=== PATIENT | male | born 1955 | race Caucasian/White ===

== ENCOUNTER 2019-09-05 08:00 | Inpatient (IN) | payer OTHER, MEDICARE ==
--- NOTE | 2019-09-05 08:09 | HP ---
Satellite [facility] - Chief Complaint Chief Complaint: left hip pain - Past Medical History Allergies/Adverse Reactions: Allergies Allergy/AdvReac Type Severity Reaction Status Date / Time No Known Allergies Allergy Verified 08/21/19 11:44 - Current Medications Current Medications: Home Medications Medication Instructions Recorded [place]-3 Fatty Acids [[place]-3] 1 each PO DAILY 08/21/19 Satellite Physical Exam - Physical Examination General Appearance: Well Nourished, Well Developed, Alert & Oriented x3 ENT: Clear Lung: Normal air movement Heart: Regular rate & rhythm Extremities: Other (left hip- + ttp, dec rom, nvi, xrays show grade 4 hip djd) Neurological: Intact, Alert, Oriented Satellite Impression/Plan - Impression/Plan Impression: left hip djd Operative Procedure: left castillo thr Date to be Performed: 09/05/19
[2019-09-05] MEDS ORDERED: CELECOXIB 200 MG CAPSULE PO ONE ×2 (09:03→09:30)
[2019-09-05] MEDS ORDERED: CEFAZOLIN 2 GM in DEXTROSE 5%-WATER - 50 ML IVPB ONE (09:03)
[2019-09-05] MEDS ORDERED: TRANEXAMIC ACID 1000 MG/10 ML VIAL IVPUSH ONE (09:03)
[2019-09-05 09:43] VITALS: BMI 27.8
[2019-09-05] MEDS ORDERED: MIDAZOLAM HCL 2 MG/2 ML SINGLE DOSE VIAL ONE (10:00)
[2019-09-05] MEDS ORDERED: ONDANSETRON 4 MG/2 ML VIAL ONE (10:29)
[2019-09-05] MEDS ORDERED: SODIUM CHLORIDE 0.9% P/F 10 ML VIAL IJ ONE (10:29)
[2019-09-05] MEDS ORDERED: ceFAZolin SODIUM 1 GM VIAL ONE ×2 (10:29→10:40)
[2019-09-05] MEDS ORDERED: PROPOFOL 20 ML ONE ×2 (10:31)
[2019-09-05] MEDS ORDERED: BUPIVACAINE HCL/PF 0.5% (5MG/ML) 10 ML VIAL ONE (10:34)
[2019-09-05] MEDS ORDERED: VANCOMYCIN 1,000 MG VIAL (RESTRICTED TO ID ONLY) ONE (10:40)
[2019-09-05] MEDS ORDERED: ceFAZolin SODIUM 1 GM VIAL IVPB ONE (12:33)
[2019-09-05] MEDS ORDERED: MAGNESIUM HYDROX 2400MG/30ML ORAL SUSPENSION 30 ML CUP PO PRN (12:36)
[2019-09-05] MEDS ORDERED: ONDANSETRON 4 MG/2 ML VIAL IVPUSH PRN (12:36)
[2019-09-05] MEDS ORDERED: MAG HYDROX/AL HYDROX/SIMETH 30 ML UNIT-DOSE CUP PO PRN (12:36)
[2019-09-05] MEDS ORDERED: LACTATED RINGERS SOLUTION 1,000 ML IV SCH (12:45)
[2019-09-05] MEDS ORDERED: EPHEDRINE SULFATE/0.9% NACL/PF 50 MG/10 ML SYRINGE NR ONE (12:55)
[2019-09-05] MEDS ORDERED: VANCOMYCIN 1,000 MG VIAL (RESTRICTED TO ID ONLY) IVPB ONE (13:31)
--- NOTE | 2019-09-05 14:04 | OP ---
Operative Note - Note: Operative Date: 09/05/19 (aileen) Pre-Operative Diagnosis: left hip djd Operation: left castillo thr Post-Operative Diagnosis: Same as Pre-op Surgeon: Sumeet Jaquez Pathology Laboratory Aide: Keshawn Porter Anesthesiologist/DIESEL SERVICE TECHNICIAN: Elias Lee Anesthesia: Spinal, Local Specimens Removed: femoral head Estimated Blood Loss (mls): 200 Operative Report Dictated: Yes
[2019-09-05] MEDS ORDERED: oxyCODONE HCL 5 MG TABLET PO PRN (14:54)
[2019-09-05] MEDS: ACETAMINOPHEN 325 MG TABLET (FP) PO SCH ×2 (15:23→20:16)
[2019-09-05] MEDS: oxyCODONE HCL 5 MG TABLET PO PRN ×2 (17:47→20:16)
--- NOTE | 2019-09-05 17:51 | PN ---
Progress Note, Physician Chief Complaint: Left THR History of Present Illness: Previous notes and events reviewed awake and alert NAD POD #0 for Left THR denies chest pain or SOB sts pain is controlled - Current Medication List Current Medications: Active Medications Acetaminophen (Tylenol -) 650 mg PO Q6H [facility] Stop: 09/08/19 14:59 Last Admin: 09/05/19 15:23 Dose: 650 mg Al Hydroxide/Mg Hydroxide (Mylanta Oral Suspension -) 30 ml PO Q4H PRN PRN Reason: DYSPEPSIA Aspirin (Asa -) 325 mg PO DAILY@0800 [facility] Fentanyl (Sublimaze Injection -) 50 mcg IVPUSH [id number] PRN PRN Reason: PAIN-PACU ORDER X 4 DOSES ONLY Cefazolin Sodium/Dextrose (Ancef 2 Gm Premixed Ivpb -) 2 gm in 50 mls @ 100 mls /hr IVPB Q8H [facility] Stop: 09/06/19 04:29 Lactated Ringer's (Lactated Ringers Solution) 1,000 mls @ 125 mls/hr IV ASDIR [facility] Stop: 09/06/19 06:00 Last Admin: 09/05/19 15:00 Dose: 125 mls/hr Magnesium Hydroxide (Milk Of Magnesia -) 30 ml PO PRN PRN PRN Reason: CONSTIPATION Multivitamins/Minerals/Vitamin C (Tab-A-Vit -) 1 tab PO DAILY [facility] Ondansetron HCl (Zofran Injection) 4 mg IVPUSH Q6H PRN PRN Reason: NAUSEA Oxycodone HCl (Roxicodone -) 5 mg PO Q3H PRN PRN Reason: PAIN LEVEL 1-5 Oxycodone HCl (Roxicodone -) 10 mg PO Q3H PRN PRN Reason: PAIN LEVEL 6-10 Last Admin: 09/05/19 17:47 Dose: 10 mg Oxycodone HCl (Oxycontin -) 10 mg PO BID [facility] Stop: 09/08/19 14:55 Pantoprazole Sodium (Protonix -) 40 mg PO DAILY [facility] Senna/Docusate Sodium (Pericolace -) 2 tablet PO BID [facility] - Objective Vital Signs: Vital Signs Temperature 98.0 F 09/05/19 15:40 Pulse Rate 56 L 09/05/19 15:40 Respiratory Rate 16 09/05/19 15:40 Blood Pressure 109/49 L 09/05/19 15:40 O2 Sat by Pulse Oximetry (%) 97 09/05/19 15:10 Constitutional: Yes: No Distress, Calm Eyes: Yes: Conjunctiva Clear HENT: Yes: Atraumatic Cardiovascular: Yes: Regular Rate and Rhythm Respiratory: Yes: Regular, CTA Bilaterally Gastrointestinal: Yes: Normal Bowel Sounds, Soft Musculoskeletal: Yes: Muscle Weakness Extremities: Yes: WNL Edema: No Wound/Incision: Yes: Dressing Dry and Intact (l hip) Neurological: Yes: Alert, Oriented Psychiatric: Yes: Alert, Oriented - ....Imaging X-ray: Report Reviewed Problem List - Problems (1) History of left hip replacement Assessment/Plan: -Ortho on board -POD #0 L THR -pain control -incentive spirometer -aspirin -stool softeners -Hip Xray shows left hip replacement with soft tissue air -Cefazolin Code(s): Z96.642 - PRESENCE OF LEFT ARTIFICIAL HIP JOINT Assessment/Plan see problem list
[2019-09-05] MEDS: CEFAZOLIN 2 GM/D5W 2 GM/50 ML ML IVPB SCH (20:06)
--- NOTE | 2019-09-05 20:41 | SPEC ---
DATE OF OPERATION: 09/05/2019 PREOPERATIVE DIAGNOSIS: Degenerative joint disease left hip. POSTOPERATIVE DIAGNOSIS: Degenerative joint disease left hip. PROCEDURE PERFORMED: Left total hip replacement with robotic-assisted navigation (MAKOplasty). SURGICAL ATTENDING: Sumeet Jaquez MD INFORMATION SYSTEMS SECURITY ANALYST: RALEIGH Lopez ANESTHESIA: Regional and spinal. CLOSURE: A Morales total hip system with a 58 Trident II Press-Fit acetabulum, a number 8 Accolade II femoral Press-Fit stem, a standard ceramic 36-mm femoral head. Number 1 Vicryl for fascia, 0 and 2-0 subcutaneous, and 3-0 Monocryl subcuticular with skin glue for skin, 4-0 undyed Vicryl for pin sites. ESTIMATED BLOOD LOSS: Less than 100 mL. COMPLICATIONS: None. CONDITION: To the recovery room in stable condition. DESCRIPTION OF PROCEDURE: The patient was taken to the operating room on September 05, 2019. Spinal and regional anesthesia was administered by the anesthesiologist. IV Kefzol and TXA were administered prophylactically prior to the case. The patient was placed in the lateral decubitus position will all prominences well-padded. The left hip area was prepped and draped in the usual sterile fashion. Using 3 small stab incisions over the iliac crest, 3 threaded pins were drilled in power fashion through the 2 tables of the crest. These pins were fastened and the navigation array for the Jey navigation system. Next, a 12 to 15-cm curved longitudinal incision over the posterolateral aspect of the greater trochanter was incised. Hemostasis was achieved with Bovie cautery. Sharp dissection was carried down to level of the fascia. The fascia was opened the entire length of the incision, spreading the fibers of the gluteus teo in the direction of origin. A Charnley retractor was placed in this layer. Care was taken not to impale the sciatic nerve. The short external rotators were detached off the insertion of the greater trochanter and peeled off the capsule. A posterior capsulotomy was then performed. A check point was malleted into the greater trochanter and a point on the inferior pole of the patella was obtained as well. These 2 points were used to assess the preoperative offset and limb lengths of the hip. The hip was then dislocated. The femoral neck was then osteotomized down to the appropriate level as directed by the navigation device. Anterior and posterior retractors were placed, exposing the acetabulum. A circumferential labral excision was performed. A check point was malleted into the acetabulum as well. Multiple sites inside the acetabulum and around the rim were utilized to register the acetabulum with the navigation device. An excellent registration of less than 0.5 mm was obtained. The hip was then reamed with the appropriate reamer down to the appropriate depth, with the appropriate orientation and version as assessed on our preoperative plan for this patient. The reamer was removed and the acetabulum was inspected to have good bleeding surfaces throughout. The real acetabular cup was then malleted down into place, with the holes in the appropriate position, until an excellent fixation was obtained. No screws were necessary. The navigation device ensured appropriate orientation and version, with the depth as predetermined. The appropriate liner was then clipped into place. Attention was directed to the femur. The proximal femur was prepared by use a box chisel, a canal finder and serial broaches until the broach achieved excellent rigidity in the proximal femur with the appropriate version being applied. A calcar planer was used to smooth off the calcar flush with the trial components. A trial reduction with the appropriate head was done, and the hip was reduced. The hip was taken through a range of motion from full extension with external rotation to marked flexion, and was stable at 90 degrees of flexion. It was stable to marked abduction and internal rotation, with a positive hang test and negative telescoping. Limb lengths were ascertained visually as well as with the navigation device to be within the targeted range for this patient. The trial component was removed. The real component was then malleted into place. The head was cold welded to the trunnion, and the hip was reduced. Range of motion, stability and limb lengths were as described in the trial component. Then the hip was pulse antibiotic irrigated. Vancomycin powder was placed in the hip joint. The capsule was closed. The fascia was then closed as well using number 1 Vicryl interrupted suture, 0 and 2-0 subcutaneous, and 3-0 V-Loc for the skin. 4-0 undyed Vicryl was used to close the pin sites after the pins were removed. All check points were also removed. Sterile Aquacel dressing was applied. The patient was awakened from anesthesia and transferred into the supine position. Bilateral SCDs and an abduction pillow were placed. X-rays revealed excellent position of the components. The patient was transferred to the recovery room in stable condition, with no complications. Estimated blood loss was less than 100 mL. Kory PRIETO/[id number]
[2019-09-05] MEDS: SENNOSIDES/DOCUSATE COMBO (SENNA PLUS) TABLET (UD) PO SCH (21:25)
[2019-09-05] MEDS: oxyCODONE HCL 10 MG SUSTAINED ACTING TABLET PO SCH (21:26)
[2019-09-06] MEDS: oxyCODONE HCL 5 MG TABLET PO PRN ×2 (00:28→03:11)
[2019-09-06] MEDS: CEFAZOLIN 2 GM/D5W 2 GM/50 ML ML IVPB SCH (03:08)
[2019-09-06] MEDS: ACETAMINOPHEN 325 MG TABLET (FP) PO SCH ×4 (03:11→21:21)
[2019-09-06] MEDS: ASPIRIN 325 MG TABLET PO SCH (07:46)
[2019-09-06 07:56] LABS: HEMATOCRIT 37.3 % (35.4-49); HEMOGLOBIN 12.6 GM/dl (11.7-16.9); MCH 29.1 pg (25.7-33.7); MCHC 33.9 g/dl (32.0-35.9); MEAN CELL VOLUME 85.9 fl (80-96); MEAN PLT VOLUME 8.3 fl (7.5-11.1); PLATELET COUNT 161 K/MM3 (134-434); RBC 4.34 M/mm3 (4.00-5.60); RDW 12.2 % (11.9-15.9); WHITE BLOOD COUNT 8.8 K/mm3 (4.0-10.8)
[2019-09-06 08:07] LABS: ALBUMIN 3.2 g/dl (3.4-5.0); BILIRUBIN,TOTAL 1.1 mg/dl (0.2-1); CREATININE 0.8 mg/dl (0.55-1.3); POTASSIUM 4.2 mmol/L (3.5-5.1); TOT PROT 5.3 g/dl (6.4-8.2)
--- NOTE | 2019-09-06 08:33 | PN ---
Progress Note (short form) - Note Progress Note: Ortho Pt seen and examined s/p left castillo thr pod #1 Selected Entries 09/06/19 09/06/19 06:00 07:49 Temperature 99.7 F H Pulse Rate 67 Respiratory 17 Rate Blood Pressure 109/55 L Laboratory Tests 09/06/19 07:05 WBC 8.8 Hgb 12.6 Hct 37.3 Plt Count 161 dressing c/d/i, calf soft, nt nvi a/p PT hip precautions dvt ppx pain control d/c home tomorrow if stable
--- NOTE | 2019-09-06 08:38 | PN ---
Progress Note (short form) - Note Progress Note: ANESTHESIA POSTOP 64 YO MALE POD#1 S/P PAWAN, SPINAL AND PNB Patient sitting in chair. Reports pain was bad last night but better today. Responds to pain medication. Tolerating PO. VSS, Afebrile Continue current care. Encouraged IS and active participation in PT
[2019-09-06] MEDS: SENNOSIDES/DOCUSATE COMBO (SENNA PLUS) TABLET (UD) PO SCH ×2 (09:31→21:21)
[2019-09-06] MEDS: MULTIVITAMINS (DAILY MVI) TABLET (FP) PO SCH (09:31)
[2019-09-06] MEDS: PANTOPRAZOLE 40 MG TABLET (FP) PO SCH (09:31)
[2019-09-06] MEDS: oxyCODONE HCL 10 MG SUSTAINED ACTING TABLET PO SCH ×2 (09:31→21:20)
--- NOTE | 2019-09-06 14:41 | PN ---
Progress Note, Physician Chief Complaint: Left THR History of Present Illness: Previous notes and events reviewed awake and alert NAD POD #1 for Left THR denies chest pain or SOB sts pain is controlled examined after PT had episode of hypotension earlier with BP--denies dizziness - Current Medication List Current Medications: Active Medications Acetaminophen (Tylenol -) 650 mg PO Q6H [facility] Stop: 09/08/19 14:59 Last Admin: 09/06/19 08:54 Dose: 650 mg Al Hydroxide/Mg Hydroxide (Mylanta Oral Suspension -) 30 ml PO Q4H PRN PRN Reason: DYSPEPSIA Aspirin (Asa -) 325 mg PO DAILY@0800 [facility] Last Admin: 09/06/19 07:46 Dose: 325 mg Magnesium Hydroxide (Milk Of Magnesia -) 30 ml PO PRN PRN PRN Reason: CONSTIPATION Multivitamins/Minerals/Vitamin C (Tab-A-Vit -) 1 tab PO DAILY [facility] Last Admin: 09/06/19 09:31 Dose: 1 tab Ondansetron HCl (Zofran Injection) 4 mg IVPUSH Q6H PRN PRN Reason: NAUSEA Last Admin: 09/06/19 13:06 Dose: 4 mg Oxycodone HCl (Roxicodone -) 5 mg PO Q3H PRN PRN Reason: PAIN LEVEL 1-5 Oxycodone HCl (Roxicodone -) 10 mg PO Q3H PRN PRN Reason: PAIN LEVEL 6-10 Last Admin: 09/06/19 03:11 Dose: 10 mg Oxycodone HCl (Oxycontin -) 10 mg PO BID [facility] Stop: 09/08/19 14:55 Last Admin: 09/06/19 09:31 Dose: 10 mg Pantoprazole Sodium (Protonix -) 40 mg PO DAILY [facility] Last Admin: 09/06/19 09:31 Dose: 40 mg Senna/Docusate Sodium (Pericolace -) 2 tablet PO BID [facility] Last Admin: 09/06/19 09:31 Dose: 2 tablet - Objective Vital Signs: Vital Signs Temperature 99.3 F 09/06/19 13:47 Pulse Rate 81 09/06/19 13:47 Respiratory Rate 18 09/06/19 13:47 Blood Pressure 100/47 L 09/06/19 13:47 O2 Sat by Pulse Oximetry (%) 94 L 09/06/19 13:47 Constitutional: Yes: No Distress, Calm Eyes: Yes: Conjunctiva Clear HENT: Yes: Atraumatic Cardiovascular: Yes: Regular Rate and Rhythm Respiratory: Yes: Regular, CTA Bilaterally Gastrointestinal: Yes: Normal Bowel Sounds, Soft Musculoskeletal: Yes: Muscle Weakness Extremities: Yes: WNL Edema: No Wound/Incision: Yes: Dressing Dry and Intact Neurological: Yes: Alert, Oriented Psychiatric: Yes: Alert, Oriented Labs: CBC, BMP 09/06/19 07:05 09/06/19 07:05 Problem List - Problems (1) History of left hip replacement Assessment/Plan: -Ortho on board -POD #1 L THR -pain control -incentive spirometer -aspirin -stool softeners -Hip Xray shows left hip replacement with soft tissue air -Cefazolin Code(s): Z96.642 - PRESENCE OF LEFT ARTIFICIAL HIP JOINT
[2019-09-07] MEDS: ACETAMINOPHEN 325 MG TABLET (FP) PO SCH ×2 (02:31→08:45)
[2019-09-07 07:44] VITALS: BP 101/46; PULSE 88; TEMP 98.1
[2019-09-07] MEDS: ASPIRIN 325 MG TABLET PO SCH (07:44)
[2019-09-07 07:58] LABS: HEMATOCRIT 35.8 % (35.4-49); MCHC 33.4 g/dl (32.0-35.9); MEAN CELL VOLUME 86.9 fl (80-96); MEAN PLT VOLUME 8.4 fl (7.5-11.1); PLATELET COUNT 158 K/MM3 (134-434); RBC 4.12 M/mm3 (4.00-5.60); RDW 12.1 % (11.9-15.9); WHITE BLOOD COUNT 7.4 K/mm3 (4.0-10.8)
--- NOTE | 2019-09-07 08:38 | PN ---
Progress Note (short form) - Note Progress Note: Ortho Pt seen and examined s/p left castillo thr pod #2 Selected Entries 09/07/19 07:43 Temperature 98.1 F Pulse Rate 88 Respiratory 19 Rate Blood Pressure 101/46 L Laboratory Tests 09/07/19 07:00 WBC 7.4 Hgb 12.0 Hct 35.8 Plt Count 158 dressing c/d/i, calf soft, nt nvi a/p PT hip precautions dvt ppx pain control d/c home today f/u in 1 week
--- NOTE | 2019-09-07 08:39 | DS ---
Physical Examination Vital Signs: Vital Signs Temperature 98.1 F 09/07/19 07:43 Pulse Rate 88 09/07/19 07:43 Respiratory Rate 19 09/07/19 07:43 Blood Pressure 101/46 L 09/07/19 07:43 O2 Sat by Pulse Oximetry (%) 96 09/07/19 07:43 Labs: CBC, BMP 09/07/19 07:00 09/06/19 07:05 Discharge Summary Problems reviewed: Yes Reason For Visit: OSTEOARTHRITIS Current Active Problems History of left hip replacement (Acute) Procedures: Principal: left thr Hospital Course: admitted for elective left castillo thr, post-op as per protocol, stable for d/c Condition: Good - Instructions Diet, Activity, Other Instructions: Post-op Instructions-Total Hip Replacement Call the office for a follow-up appointment in 1 week - [phone] Aspirin 325mg daily for 6 weeks. Pain medication was sent into your pharmacy. Apply Graduated Compression Stockings (TEDs) to both lower extremities- remove daily for hygiene ONLY Apply Sequential Compression Device (SCDs) to both Lower extremities remove for PT and hygiene ONLY Apply cold packs to affected area for 15 minutes every 2 hours. Physical Therapist will come to your home for the first 5 days. You will be set up with outpatient PT at your first post-operative visit. Patient may ambulate as tolerated-encourage self care (at least every 2-3 hours while awake) with walker or cane Maintain Aquacel (waterproof) dressing to operative wound (will be removed by surgeon at first office visit) Shower with Aquacel dressing in place-if Aquacel integrity compromised, remove and apply dry sterile dressing and notify Orthopedist. DO NOT SHOWER unless Orthopedists approves without Aquacel dressing CONTACT THE OFFICE FOR ANY CHANGE IN YOUR CONDITION (for example-fever greater than 102 degrees, excessive bleeding from operative site, purulent drainage, severe swelling or pain) GO TO THE EMERGENCY ROOM IF THERE IS A MEDICAL EMERGENCY Hip Precautions: * Keep a rolled towel under affected heel while in bed or chair (to keep knee in extension) * Dependent upon approach: * Posterior - do not cross legs; do not sit on low chairs or toilets. * If you have any questions, please do not hesitate to call the office - . Referrals: Sumeet Jaquez MD [Staff Physician] - Disposition: VNS/HOME HEALTH CARE - Home Medications Comprehensive Discharge Medication List: Ambulatory Orders [place]-3 Fatty Acids [[place]-3] 1 each PO DAILY 08/21/19 Aspirin [ASA -] 325 mg PO DAILY@0800 tablet 09/05/19 Oxycodone HCl/Acetaminophen [Percocet 5-325 mg Tablet -] 1 - 2 tab PO Q6H #50 tab MDD 8 09/05/19
[2019-09-07] MEDS: SENNOSIDES/DOCUSATE COMBO (SENNA PLUS) TABLET (UD) PO SCH (09:13)
[2019-09-07] MEDS: oxyCODONE HCL 10 MG SUSTAINED ACTING TABLET PO SCH (09:13)
[2019-09-07] MEDS: PANTOPRAZOLE 40 MG TABLET (FP) PO SCH (09:13)
[2019-09-07] MEDS: MULTIVITAMINS (DAILY MVI) TABLET (FP) PO SCH (09:13)
--- NOTE | 2019-09-08 16:28 | PATH ---
Surgical Pathology Report Patient Name: LYNSEY GREEN Med. Rec. #: [id number] /Age/Gender: 1955 (Age: 64) / M Account: [id number] Location: [facility] MED-SURG Taken: 09/05/2019 Received: 09/05/2019 Reported: 09/08/2019 Physicians: Sumeet Jaquez M.D. Specimen(s) Received LEFT FEMORAL HEAD Clinical History Left hip osteoarthritis Final Diagnosis FEMORAL HEAD, LEFT, TOTAL REPLACEMENT: DEGENERATIVE JOINT DISEASE. Electronically Signed Martha Briceno M.D. Gross Description Received in formalin, labeled "left femoral head," is a 5.8 x 4.5 x 3.4 cm. femoral head. The margin of resection is smooth. The articular surface shows areas of eburnation and appears granular. The underlying trabecular bone is yellow and hard. A consumer sales representative section is submitted in one cassette, following decalcification.
== END 2019-09-07 13:55 | disposition home health service (06) | DRG 470 ==
LOC: FM/S 08:55
PROVIDERS: ADMIT Orthopaedic Surgery; ATTEND Orthopaedic Surgery
PROC: 8E0Y0CZ Robotic Assisted Procedure of Lower Extremity, Open Approach (ICD-10-PCS; 2019-09-05)
PROC: 0SRB0JA Replacement of Left Hip Joint with Synthetic Substitute, Uncemented, Open Approach (ICD-10-PCS; principal; 2019-09-05 12:48)
DX: M16.12 Unilateral primary osteoarthritis, left hip (principal)
CPT/HCPCS: 36415; 73502-TC-LT-FY; 80053; 85027; 88305-TC; 88311-TC; 94760; 97116-GP; 97163-GP